=== PATIENT | male | born 1970 | race Two or more races ===

== ENCOUNTER 2017-01-25 13:13 | Emergency (ER) | payer SELFPAY ==
[2017-01-25] MEDS ORDERED: IBUPROFEN 800 MG TABLET PO ONE (13:27)
--- NOTE | 2017-01-25 13:27 | ER Document Report ---
ED Medical Screen (RME) - General Stated Complaint: LEG INJURY Mode of Arrival: Wheelchair Information source: Patient Notes: c/o pain in left ankle that started last week when he was playing basketball when he jumped up. He is able to bear weight on that ankle but pain worse with movement. Believes he has a "broken calcaneous tendon." Endorses swelling, bruising and numbness to area. has tried tylenol which did not provide relief. I have greeted and performed a rapid initial assessment of this patient. A comprehensive ED assessment and evaluation of the patient, analysis of test results and completion of the medical decision making process will be conducted by additional ED providers. TRAVEL OUTSIDE OF THE [place] IN LAST 30 DAYS: No - Related Data Allergies/Adverse Reactions: No Known Allergies Allergy (Verified 01/25/17 13:24) Past Medical History - Past Medical History Cardiac Medical History: Reports: Hx Hypertension - Immunizations Hx Diphtheria, Pertussis, Tetanus Vaccination: No Physical Exam - Vital signs Vitals: Temp Pulse Resp BP Pulse Ox 97.8 F 93 16 141/84 H 98 01/25/17 13:23 01/25/17 13:23 01/25/17 13:23 01/25/17 13:23 01/25/17 13:23 - Notes Notes: Left lower extremity - tender to palpation along achilles tendon without obvious deformity, no bruising or swelling noted Course - Vital Signs Vital signs: Temp Pulse Resp BP Pulse Ox 97.8 F 93 16 141/84 H 98 01/25/17 13:23 01/25/17 13:23 01/25/17 13:23 01/25/17 13:23 01/25/17 13:23
--- NOTE | 2017-01-25 14:50 | ER Document Report ---
ED Extremity Problem, Lower - General Chief Complaint: Leg Pain Stated Complaint: LEG INJURY Mode of Arrival: Wheelchair Information source: Patient Notes: 46-year-old male presents to the emergency department complaining of pain to left posterior ankle/heel area. Patient reports was playing basketball approximately 5 days ago when he was jumping and felt a pop to his posterior lower leg area. Reports has subsequently developed bruising, mild swelling, and slight weakness of foot. Denies numbness or tingling. TRAVEL OUTSIDE OF THE [place] IN LAST 30 DAYS: No - HPI Patient complains to provider of: Injury, Pain, Swelling Location: Foot, Leg Occurred: Last week Where: Sports Onset/Duration: Persistent Quality of pain: Achy Severity: Mild Pain Level: 2 Recent injury: Possibly Associated symptoms: Marshall a pop, Painful ambulation, Weak Exacerbated by: Movement, Walking Relieved by: Elevation, Ice, Rest - Related Data Allergies/Adverse Reactions: No Known Allergies Allergy (Verified 01/25/17 13:24) Past Medical History - General Information source: Patient - Social History Smoking Status: Never Smoker Chew tobacco use (# tins/day): No Frequency of alcohol use: None Drug Abuse: None Lives with: Family Family History: None, Reviewed & Not Pertinent Patient has suicidal ideation: No Patient has homicidal ideation: No - Past Medical History Cardiac Medical History: Reports: Hx Hypertension Endocrine Medical History: Reports: Hx Diabetes Mellitus Type 2 Renal/ Medical History: Denies: Hx Peritoneal Dialysis Surgical Hx: Negative - Immunizations Hx Diphtheria, Pertussis, Tetanus Vaccination: Yes Review of Systems - Review of Systems Constitutional: No symptoms reported EENT: No symptoms reported Cardiovascular: No symptoms reported Respiratory: No symptoms reported Gastrointestinal: No symptoms reported Genitourinary: No symptoms reported Male Genitourinary: No symptoms reported Musculoskeletal: See HPI Skin: No symptoms reported Hematologic/Lymphatic: No symptoms reported Neurological/Psychological: No symptoms reported -: Yes All other systems reviewed and negative Physical Exam - Vital signs Vitals: Temp Pulse Resp BP Pulse Ox 97.8 F 93 16 141/84 H 98 01/25/17 13:23 01/25/17 13:23 01/25/17 13:23 01/25/17 13:23 01/25/17 13:23 Interpretation: Normal - General General appearance: Appears well, Alert In distress: None - HEENT Head: Normocephalic, Atraumatic Eyes: Normal Pupils: PERRL - Respiratory Respiratory status: No respiratory distress Chest status: Nontender Breath sounds: Normal Chest palpation: Normal - Cardiovascular Rhythm: Regular Heart sounds: Normal auscultation Murmur: No Pulses: Normal: Radial Normal capillary refill: Yes - Abdominal Inspection: Normal Distension: No distension Bowel sounds: Normal Tenderness: Nontender Organomegaly: No organomegaly - Back Back: Normal, Nontender - Extremities General upper extremity: Normal inspection, Nontender, Normal color, Normal ROM , Normal strength, Normal temperature. No: Tender, Edema General lower extremity: Normal inspection, Nontender, Normal color, Normal ROM , Normal strength, Normal temperature, Normal weight bearing. No: Tender, Edema , Shruthi's sign Calf: Nontender Ankle: Tender - Mild tenderness with palpation to left posterior ankle with slight localized swelling and bruising. Positive Clark test and weakness with dorsal and plantar flexion. Neurovascular function intact., Ecchymosis, Edema, Limited ROM, Positive Clark's test. No: Deformity, Instability - Neurological Neuro grossly intact: Yes Cognition: Normal Orientation: AAOx4 [place] Coma Scale Eye Opening: Spontaneous [place] Coma Scale Verbal: Oriented [place] Coma Scale Motor: Obeys Commands Jatin Coma Scale Total: 15 Speech: Normal Motor strength normal: LUE, RUE, LLE, RLE Sensory: Normal - Psychological Associated symptoms: Normal affect, Normal mood - Skin Skin Temperature: Warm Skin Moisture: Dry Skin Color: Normal Course - Re-evaluation Re-evalutation: 01/25/17 14:53 Patient hemodynamically stable, in no distress. Patient presentation and physical exam findings suggestive of Achilles tendon injury/rupture. Neurovascular function intact. X-ray shows no osseous acute injury. Patient was placed in a posterior short-leg splint in plantar flexion and crutches were provided with instructions on use. Home care, follow-up with orthopedics, and ED return precautions were discussed with patient who verbalized understanding and agrees with plan. - Vital Signs Vital signs: Temp Pulse Resp BP Pulse Ox 97.6 F 85 16 135/91 H 99 01/25/17 15:20 01/25/17 15:20 01/25/17 15:20 01/25/17 15:20 01/25/17 15:20 - Diagnostic Test Radiology reviewed: Image reviewed, Reports reviewed Procedures - Immobilization Left Leg Time completed: 14:56 Pre-Proc Neuro Vasc Exam: Normal Immobilizer type: Crutches, Short Leg Posterior Performed by: RN, PCT Post-Proc Neuro Vasc Exam: Normal Alignment checked and good: Yes Discharge - Discharge Clinical Impression: Achilles rupture, left Qualifiers: Encounter type: initial encounter Qualified Code(s): S86.012A - Strain of left Achilles tendon, initial encounter Condition: Stable Disposition: HOME, SELF-CARE Instructions: Achilles Tendon Rupture ([facility]), Ice & Elevation ([facility]), Use of Crutches ([facility]), Splint Precautions ([facility]), Anti-Inflammatory Medication ([facility]) Additional Instructions: Follow-up with orthopedics tomorrow. Return to the Emergency Department for any worsening symptoms or concerns. Prescriptions: Naproxen [Naprosyn 375 Mg Tablet] 375 mg PO BIDP PRN #10 tablet PRN Reason: Forms: Elevated Blood Pressure, Return to Work Referrals: OCTAVIO MILLER MD [ACTIVE STAFF] - Follow up tomorrow
[2017-01-25 15:30] VITALS: BP 135/91
== END 2017-01-25 15:21 | disposition home or self-care (01) ==
LOC: ER 13:13
PROC: 2W3RX1Z Immobilization of Left Lower Leg using Splint (ICD-10-PCS; principal; 2017-01-25)
DX: S86.012A Strain of left Achilles tendon, initial encounter (principal); X50.0XXA Overexertion from strenuous movement or load, initial encounter; Y93.67 Activity, basketball; E11.9 Type 2 diabetes mellitus without complications; I10 Essential (primary) hypertension
CPT/HCPCS: 99283

== ENCOUNTER 2017-06-03 19:40 | Emergency (ER) | payer SELFPAY ==
[2017-06-03] MEDS ORDERED: NORMAL SALINE 1000 ML 1,000 ML IV ONE (20:05)
[2017-06-03] MEDS ORDERED: GLYBURIDE 2.5 MG TABLET PO ONE (20:05)
[2017-06-03] MEDS ORDERED: METFORMIN HCL 500 MG TABLET PO ONE (20:05)
--- NOTE | 2017-06-03 20:09 | ER Document Report ---
ED General - General Chief Complaint: High Blood Sugar Stated Complaint: POSSIBLE BLOOD SUGAR HIGH Time Seen by Provider: 06/03/17 19:57 Mode of Arrival: Ambulatory Information source: Patient Notes: 47-year-old diabetic male who is supposed be on glimepiride and metformin but has not been on medications for 6 months due to cost. Patient denies any symptoms at all except for increased urination TRAVEL OUTSIDE OF THE [place] IN LAST 30 DAYS: No - HPI Onset: Other - Duration Onset/Duration: Persistent Quality of pain: No pain Severity: Mild Pain Level: Denies Associated symptoms: Other - Urination Exacerbated by: Denies Relieved by: Denies Similar symptoms previously: No Recently seen / treated by doctor: No - Related Data Allergies/Adverse Reactions: No Known Allergies Allergy (Verified 01/25/17 13:24) Past Medical History - Social History Smoking Status: Never Smoker Cigarette use (# per day): No Chew tobacco use (# tins/day): No Smoking Education Provided: No Family History: None, Reviewed & Not Pertinent - Past Medical History Cardiac Medical History: Reports: Hx Hypertension Endocrine Medical History: Reports: Hx Diabetes Mellitus Type 2 Renal/ Medical History: Denies: Hx Peritoneal Dialysis - Immunizations Hx Diphtheria, Pertussis, Tetanus Vaccination: Yes Review of Systems - Review of Systems Notes: REVIEW OF SYSTEMS: CONSTITUTIONAL : Denies fever, chills, or sweats. Denies recent illness. EENT: Denies eye, ear, throat, or mouth pain or symptoms. Denies nasal or sinus congestion or discharge. Denies throat, tongue, or mouth swelling or difficulty swallowing. CARDIOVASCULAR: Denies chest pain. Denies palpitations or racing or irregular heart beat. Denies ankle edema. RESPIRATORY: Denies cough, cold, or chest congestion. Denies shortness of breath, difficulty breathing, or wheezing. GASTROINTESTINAL: Denies abdominal pain or distention. Denies nausea, vomiting , or diarrhea. Denies blood in vomitus, stools, or per rectum. Denies black, tarry stools. Denies constipation. GENITOURINARY: Admits to increased urinary frequency MUSCULOSKELETAL: Denies back or neck pain or stiffness. Denies joint pain or swelling. SKIN: Denies rash, lesions or sores. HEMATOLOGIC : Denies easy bruising or bleeding. LYMPHATIC: Denies swollen, enlarged glands. NEUROLOGICAL: Denies confusion or altered mental status. Denies passing out or loss of consciousness. Denies dizziness or lightheadedness. Denies headache. Denies weakness or paralysis or loss of use of either side. Denies problems with gait or speech. Denies sensory loss, numbness, or tingling. Denies seizures. PSYCHIATRIC: Denies anxiety or stress. Denies depression, suicidal ideation, or homicidal ideation. ALL OTHER SYSTEMS REVIEWED AND NEGATIVE. Dictation was performed using [employer] voice recognition software PHYSICAL EXAMINATION: GENERAL: Well-appearing, well-nourished and in no acute distress. HEAD: Atraumatic, normocephalic. EYES: Pupils equal round and reactive to light, extraocular movements intact, sclera anicteric, conjunctiva are normal. ENT: Nares patent, oropharynx clear without exudates. Moist mucous membranes. NECK: Normal range of motion, supple without lymphadenopathy LUNGS: Breath sounds clear to auscultation bilaterally and equal. No wheezes rales or rhonchi. HEART: Regular rate and rhythm without murmurs ABDOMEN: Soft, nontender, nondistended abdomen. No guarding, no rebound. No masses appreciated. Musculoskeletal: Normal range of motion, no pitting or edema. No cyanosis. NEUROLOGICAL: Cranial nerves grossly intact. Normal speech, normal gait. Normal sensory, motor exams PSYCH: Normal mood, normal affect. SKIN: Warm, Dry, normal turgor, no rashes or lesions noted. Physical Exam - Vital signs Vitals: Temp Pulse Resp BP Pulse Ox 98.0 F 95 20 136/89 H 97 06/03/17 19:46 06/03/17 19:46 06/03/17 19:46 06/03/17 19:46 06/03/17 19:46 Course - Re-evaluation Re-evalutation: 06/03/17 20:08 Patient's blood sugar at home was 480 and then recheck was 400, patient denies any symptoms except for increased urinary frequency, I will write refills for his medications otherwise patient looks well will be given medications here IV fluids and discharged home 06/03/17 21:23 Patient is noted to have a hemoglobin of 12.4, it is noted that he actually took his metformin and glyburide before arrival, his blood sugar when rechecked after a bag of fluids is now down to 184, he actually feels weaker now since his blood sugars probably been in the 400s for the past few months, I did see the patient. Otherwise I have asked his to cut back metformin to only 500 mg twice daily instead of 1000 mg as the patient appears to be quite sensitive to the change in his blood sugar Very strict return precautions have been provided After performing a Medical Screening Examination, I estimate there is LOW risk for ACUTE CORONARY SYNDROME, RESPIRATORY FAILURE, SEPSIS OR MENINGITIS, thus I consider the discharge disposition reasonable. I have reevaluated this patient multiple times and no significant life threatening changes are noted. The patient and I have discussed the diagnosis and risks, and we agree with discharging home with close follow-up. We also discussed returning to the Emergency Department immediately if new or worsening symptoms occur. We have discussed the symptoms which are most concerning (e.g., changing or worsening pain, trouble swallowing or breathing, neck stiffness, fever) that necessitate immediate return. - Vital Signs Vital signs: Temp Pulse Resp BP Pulse Ox 98.0 F 95 20 136/89 H 97 06/03/17 19:46 06/03/17 19:46 06/03/17 19:46 06/03/17 19:46 06/03/17 19:46 - Laboratory Result Diagrams: 06/03/17 20:30 06/03/17 20:30 Laboratory results interpreted by me: 06/03/17 06/03/17 06/03/17 20:30 20:30 20:30 Eosinophils % 6.5 H Glucose 234 H Hemoglobin A1c % 12.4 H Alkaline Phosphatase 187 H Discharge - Discharge Clinical Impression: Hyperglycemia, unControlled diabetes type 2, Urinary frequency Condition: Stable Disposition: HOME, SELF-CARE Instructions: Diabetes ([facility]) Additional Instructions: Please follow-up with your primary care physician regarding your blood sugar, return immediately if there are any other concerns
[2017-06-03 20:39] LABS: ABSOLUTE BASOPHILS # (AUTO) 0.1 10^3/uL (0.0-0.2); ABSOLUTE EOSINOPHILS # (AUTO) 0.6 10^3/uL (0.0-0.6); ABSOLUTE LYMPHOCYTES (AUTO) 2.7 10^3/uL (0.5-4.7); ABSOLUTE MONOCYTES (AUTO) 0.6 10^3/uL (0.1-1.4); ABSOLUTE NEUT (AUTO) 4.8 10^3/uL (1.7-8.2); BASOPHILS % (AUTO) 0.6 % (0-2); EOSINOPHILS % (AUTO) 6.5 % (0-6); HEMATOCRIT 44.9 % (37.9-51.0); HEMOGLOBIN 14.7 g/dL (13.5-17.0); HGB HCT DIFFERENCE -0.8; LYMPHOCYTES % (AUTO) 31.5 % (13-45); MEAN CORPUSCULAR HEMOGLOBIN 27.2 pg (27.0-33.4); MEAN CORPUSCULAR HGB CONC 32.8 g/dL (32.0-36.0); MEAN CORPUSCULAR VOLUME 83 fl (80-97); MONOCYTES % (AUTO) 6.8 % (3-13); RED BLOOD COUNT 5.41 10^6/uL (4.35-5.55); RED CELL DISTRIBUTION WIDTH 13.4 % (11.5-14.0); SEGMENTED NEUTROPHILS % (AUTO) 54.6 % (42-78); WHITE BLOOD COUNT 8.7 10^3/uL (4.0-10.5)
[2017-06-03 20:59] LABS: ALANINE AMINOTRANSFERASE 36 U/L (21-72); ALBUMIN 4.3 g/dL (3.5-5.0); ALKALINE PHOSPHATASE 187 U/L (38-126); ANION GAP 14 (5-19); ASPARTATE AMINO TRANSFERASE 19 U/L (17-59); BILIRUBIN,DIRECT 0.3 mg/dL (0.0-0.4); BILIRUBIN,TOTAL 0.4 mg/dL (0.2-1.3); BLOOD UREA NITROGEN 18 mg/dL (7-20); CALCIUM 9.4 mg/dL (8.4-10.2); CARBON DIOXIDE 23 mmol/L (22-30); CHLORIDE 101 mmol/L (98-107); CREATININE RESULT 0.84 mg/dL (0.52-1.25); GLUCOSE 234 mg/dL (75-110); POTASSIUM 4.4 mmol/L (3.6-5.0); SODIUM 137.8 mmol/L (137-145); TOTAL PROTEIN 7.9 g/dL (6.3-8.2)
[2017-06-03 21:36] VITALS: BP 124/74
== END 2017-06-03 21:32 | disposition home or self-care (01) ==
LOC: ER 19:40
DX: E11.65 Type 2 diabetes mellitus with hyperglycemia (principal); T38.3X6A Underdosing of insulin and oral hypoglycemic [antidiabetic] drugs, initial encounter; Z91.120 Patient's intentional underdosing of medication regimen due to financial hardship; Z91.14 Patient's other noncompliance with medication regimen; I10 Essential (primary) hypertension
CPT/HCPCS: 99285; 96360; 36415; 82962; 85025; 80053; 83036; J7030

== ENCOUNTER 2018-03-11 08:03 | Emergency (ER) | payer MEDICAID ==
--- NOTE | 2018-03-11 08:28 | ER Document Report ---
ED General - General Chief Complaint: Toothache Stated Complaint: TOOTH ACHE Time Seen by Provider: 03/11/18 08:26 Mode of Arrival: Ambulatory Information source: Patient TRAVEL OUTSIDE OF THE [place] IN LAST 30 DAYS: No - HPI Notes: 48-year-old male presents today with complaints of left lower dental pain 2 days, states worse with time, nothing makes better. Has not tried any over-the- counter medications. Pain is 10 out of 10. Denies smoking. Patient does have a primary care provider and dentist but has not made an appointment due to recently getting insurance. Eating and drinking without issues. Denies any facial swelling, trismus, drooling, throat swelling. swallowing without issues. Denies fevers, chills, chest pain,palpitations, shortness of breath, dyspnea , nausea, vomiting, diarrhea, abdominal pain, hematuria,blurred vision, double vision, loss of vision, speech changes, LH, dizziness, syncope, headaches, wheezing, ST, URI, neck pain, weakness, bowel or bladder dysfunction, saddle anesthesia, numbness or tingling in bilateral upper or lower extremities equally , muscle paralysis, weakness in bilateral upper or lower extremities equally or rash. Denies IV drug use. - Related Data Allergies/Adverse Reactions: No Known Allergies Allergy (Verified 03/11/18 08:04) Past Medical History - General Information source: Patient - Social History Smoking Status: Never Smoker Family History: None, Reviewed & Not Pertinent - Past Medical History Cardiac Medical History: Reports: Hx Hypertension Endocrine Medical History: Reports: Hx Diabetes Mellitus Type 2 Renal/ Medical History: Denies: Hx Peritoneal Dialysis - Immunizations Hx Diphtheria, Pertussis, Tetanus Vaccination: Yes Review of Systems - Review of Systems Constitutional: No symptoms reported EENT: See HPI Cardiovascular: No symptoms reported Respiratory: No symptoms reported Gastrointestinal: No symptoms reported Genitourinary: No symptoms reported Male Genitourinary: No symptoms reported Musculoskeletal: No symptoms reported Skin: No symptoms reported Hematologic/Lymphatic: No symptoms reported Neurological/Psychological: No symptoms reported Physical Exam - Vital signs Vitals: Temp Pulse Resp BP Pulse Ox 97.9 F 76 19 158/97 H 97 03/11/18 08:09 03/11/18 08:09 03/11/18 08:09 03/11/18 08:09 03/11/18 08:09 - Notes Notes: PHYSICAL EXAMINATION: GENERAL: Well-appearing, well-nourished and in no acute distress. HEAD: Atraumatic, normocephalic. EYES: Pupils equal round and reactive to light, extraocular movements intact, sclera anicteric, conjunctiva are normal. ENT: Nares patent, oropharynx clear without exudates. Moist mucous membranes. # 19,18 with noted inflammation and gingiva with mild dental decay. no avulsed or chipped tooth. No noted fluctuance, facial swelling. 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 Uvula midline. No surrounding lymphadenopathy. NECK: Normal range of motion, supple without lymphadenopathy LUNGS: Breath sounds clear to auscultation bilaterally and equal. No wheezes rales or rhonchi. HEART: Regular rate and rhythm without murmurs ABDOMEN: Soft, nontender, nondistended abdomen. No guarding, no rebound. No masses appreciated. Musculoskeletal: Normal range of motion, no pitting or edema. No cyanosis. NEUROLOGICAL: Cranial nerves grossly intact. Normal speech, normal gait. Normal sensory, motor exams PSYCH: Normal mood, normal affect. SKIN: Warm, Dry, normal turgor, no rashes or lesions noted. Course - Re-evaluation Re-evalutation: 03/11/18 08:39 Presentation is most consistent with likely an infected tooth. Airway is patent. Vitals within normal limits. Patient is able swallow without any difficulty. There is no significant facial swelling. No evidence of Mervat angina, apical abscess, or airway obstruction. Patient will be started on antibiotics. I've instructed to follow-up with dentistry as earliest ability for definitive management. At this time will discharge with return precautions and follow-up recommendations. Patient given oral antibiotics, advised to take as directed, yogurt daily to prevent loose stool. Follow-up with the dentist within 3 days. Take [id number] ibuprofen and Tylenol as needed. verbal discharge instructions given a the bedside and opportunity for questions given. Medication warnings reviewed. Patient is in agreement with this plan and has verbalized understanding of return precautions and the need for primary care follow-up in the next 24-72 hours. After performing a Medical Screening Examination, I estimate there is LOW risk for a DEEP SPACE INFECTION (e.g., MERVAT'S ANGINA OR RETROPHARYNGEAL ABSCESS), MENINGITIS, INTRACRANIAL HEMORRHAGE, or AIRWAY COMPROMISE, thus I consider the discharge disposition reasonable. Also, there is no evidence or peritonitis, sepsis, or toxicity. I have reevaluated this patient multiple times and no significant life threatening changes are noted. The patient and I have discussed the diagnosis and risks, and we agree with discharging home with close follow-up with the understanding that symptoms and presentations can change. We also discussed returning to the Emergency Department immediately if new or worsening symptoms occur. We have discussed the symptoms which are most concerning (e.g., changing or worsening pain, trouble swallowing or breathing, neck stiffness or fever) that necessitate immediate return. - Vital Signs Vital signs: Temp Pulse Resp BP Pulse Ox 97.9 F 76 19 158/97 H 97 03/11/18 08:09 03/11/18 08:09 03/11/18 08:09 03/11/18 08:09 03/11/18 08:09 Discharge - Discharge Clinical Impression: Dental caries Clinical Impression: (Ruled Out): Dental caries associated with enamel hypomineralization Condition: Good Disposition: HOME, SELF-CARE Instructions: [facility], Clindamycin ([facility]), Dentist, Toothache ( [facility]) Additional Instructions: Toothache Your pain is due to dental decay. The tooth must be repaired in order for you to feel better. You will, therefore, be referred to a dentist. Severe swelling or drainage around a tooth usually means a deep dental abscess. This also requires evaluation and treatment by the dentist, but antibiotics may be prescribed while awaiting dental treatment. You should be rechecked immediately if you develop major swelling of the face, increasing pain, a lump in the jaw or gums, headache, or fever. Return immediately for any new or worsening symptoms. You have been seen for dental pain. It is very important that you follow-up with a dentist for definitive care. Please return if you develop fever greater than 101, swelling in your face, vomiting, difficulty breathing or swallowing, or any other symptoms that are concerning to you. For pain you should take ibuprofen 600 mg every 6 hours as needed. Follow up with primary care provider and dentist, call tomorrow to make followup appointment. Prescriptions: Clindamycin HCl 300 mg PO Q6H #28 capsule Ibuprofen 600 mg PO QIDP PRN #20 tablet PRN Reason: Forms: Return to Work Referrals: DIANE BAUTISTA MD [ACTIVE STAFF] - Follow up in 1 week (prn)
[2018-03-11] MEDS ORDERED: KETOROLAC TROMETHAMINE 60 MG/2 ML SDV IM ONE (08:37)
[2018-03-11] MEDS ORDERED: CLINDAMYCIN HCL 150 MG CAPSULE PO ONE (08:38)
[2018-03-11 09:12] VITALS: BP 161/92
== END 2018-03-11 09:25 | disposition home or self-care (01) ==
LOC: ER 08:03
DX: K02.9 Dental caries, unspecified (principal); I10 Essential (primary) hypertension; E11.9 Type 2 diabetes mellitus without complications
CPT/HCPCS: 99282; 96372; J3490; J1885

== ENCOUNTER 2018-11-20 16:10 | Emergency (ER) | payer MEDICAID ==
[2018-11-20 18:43] VITALS: BP 134/88
--- NOTE | 2018-11-20 18:48 | ER Document Report ---
ED Blood Sugar Problem - General Chief Complaint: High Blood Sugar Stated Complaint: BLOOD SUGAR ISSUES Time Seen by Provider: 11/20/18 18:07 Mode of Arrival: Ambulatory Information source: Patient Notes: Patient is a patient states that he has been without his blood pressure 48-year-old male comes emergency room complaining of high blood sugar. Patient states he has been without his blood sugar medications for at least a month. He states he goes to the urgent care across the street first he missed an appointment second he was 20 minutes late he went there today to see if he could get in I told him he had no room. They told him he needed to come to ER. Patient is here at his stating that his made him come. He says he feels fine he has no complaints but he is here because she made him being here. He does state that his sugars have been running up around 300 and that he does know that he needs to get that corrected. He also states that his lancet machine is also broken so he has not been taking his blood sugars as he should. He also has a history of hypertension. Denies any other medical problems. He currently is taking metformin 1000 mg twice a day glyburide 2.5 mg daily and hydrochlorothiazide 12.5 mg daily and lisinopril 10 mg daily. Patient denies smoking TRAVEL OUTSIDE OF THE [place] IN LAST 30 DAYS: No - HPI Onset: Other - Month Onset/Duration: Better Quality of pain: No pain Severity: None Pain Level: 0 Blood sugar level at home: 250 D-stick result: 281 Insulin taken: No Glucose taken: No Associated symptoms: None Similar symptoms previously: Yes Recently seen / treated by doctor: No - Related Data Allergies/Adverse Reactions: No Known Allergies Allergy (Verified 11/20/18 16:11) Past Medical History - General Information source: Patient - Social History Smoking Status: Never Smoker Cigarette use (# per day): No Chew tobacco use (# tins/day): No Smoking Education Provided: No Frequency of alcohol use: None Drug Abuse: None Lives with: Family Family History: None, Reviewed & Not Pertinent Patient has suicidal ideation: No Patient has homicidal ideation: No - Past Medical History Cardiac Medical History: Reports: Hx Hypertension Endocrine Medical History: Reports: Hx Diabetes Mellitus Type 2 Renal/ Medical History: Denies: Hx Peritoneal Dialysis - Immunizations Hx Diphtheria, Pertussis, Tetanus Vaccination: Yes Review of Systems - Review of Systems Constitutional: No symptoms reported EENT: No symptoms reported Cardiovascular: No symptoms reported Respiratory: No symptoms reported Gastrointestinal: No symptoms reported Genitourinary: No symptoms reported Male Genitourinary: No symptoms reported Musculoskeletal: No symptoms reported Skin: No symptoms reported Hematologic/Lymphatic: No symptoms reported Neurological/Psychological: No symptoms reported -: Yes All other systems reviewed and negative Physical Exam - Vital signs Vitals: Temp Pulse Resp BP Pulse Ox 98.2 F 81 16 147/80 H 98 11/20/18 16:24 11/20/18 16:24 11/20/18 16:24 11/20/18 16:24 11/20/18 16:24 Interpretation: Hypertensive - Notes Notes: PHYSICAL EXAMINATION: GENERAL: Well-appearing, well-nourished and in no acute distress. HEAD: Atraumatic, normocephalic. EYES: Pupils equal round and reactive to light, extraocular movements intact, sclera anicteric, conjunctiva are normal. ENT: Nares patent, oropharynx clear without exudates. Moist mucous membranes. NECK: Normal range of motion, supple without lymphadenopathy LUNGS: Breath sounds clear to auscultation bilaterally and equal. No wheezes rales or rhonchi. HEART: Regular rate and rhythm without murmurs ABDOMEN: Soft, nontender, nondistended abdomen. No guarding, no rebound. No masses appreciated. Musculoskeletal: Normal range of motion, no pitting or edema. No cyanosis. NEUROLOGICAL: Normal speech, normal gait. Normal sensory, motor exams PSYCH: Normal mood, normal affect. SKIN: Warm, Dry, normal turgor, no rashes or lesions noted. Course - Re-evaluation Re-evalutation: 11/21/18 01:54 Patient makes it a point to tell me he has no symptoms whatsoever Reason is here is because his made him come. Patient further states that he has had the incident with the walk-in clinic as we have mentioned in the HPI. And they sent him here because they are afraid his sugars were out of control. Patient also stated to me that he has a problem with his last set machine that it does not extend far enough out so he is not been checking his sugars. I therefore wrote him a prescription for a new one. Patient was sat down and had a long talk with him about his diabetes about how if he does not take care of it now in the future it will get worse and he may even lead up to loss of digits or limbs or organs. I do believe I made somewhat of a day and his impression however it is hard to tell. I am writing patient for 1 month supply of his medications and for his lancet machine. - Vital Signs Vital signs: Temp Pulse Resp BP Pulse Ox 98.2 F 79 16 134/88 H 99 11/20/18 18:42 11/20/18 18:42 11/20/18 18:42 11/20/18 18:42 11/20/18 18:42 - Laboratory Laboratory results interpreted by me: 11/20/18 18:13 POC Glucose 231 H Discharge - Discharge Clinical Impression: Hyperglycemia, Medication refill Disposition: HOME, SELF-CARE Instructions: Hyperglycemia ([facility]) Additional Instructions: HYPERGLYCEMIA (HIGH BLOOD SUGAR): You have an abnormally high blood sugar. Not all high blood sugar requires long-term treatment. High blood sugar can be due to medications, , or the stress of illness. (These cases are "borderline diabetes.") If the doctor feels your high blood sugar might resolve with time, you may not require treatment now. It's very important that you follow through, to see if the blood sugar returns to normal levels. Uncontrolled high blood sugar leads to early heart disease, strokes, nerve damage, eye damage, and kidney damage. Call the physician if there is faintness, excess sleepiness, or very rapid breathing. DIABETES: You have an abnormally high blood sugar, suspicious for diabetes. Not all high blood sugar requires long-term treatment. High blood sugar can be due to medications, , or the stress of illness. (These cases are "borderline diabetes.") If the doctor feels your high blood sugar might get better with time, you may not require treatment now. It's very important that you follow through. Uncontrolled high blood sugar leads to early heart disease, strokes, nerve damage, eye damage, and kidney damage. All diabetics should follow a diet designed to control the blood sugar. Overweight diabetics should exercise regularly and lose weight. If this is not sufficient to control the blood sugar, pills or insulin shots are necessary. Younger people who develop diabetes almost always require insulin daily. Home testing of blood sugars or urine sugar is required. Diabetic teaching is available to help you figure insulin doses and monitor the blood sugar. Call the physician if there is faintness, excess sleepiness, or very rapid breathing. If hypoglycemia (LOW blood sugar) develops, symptoms are shakiness, weakness, sweating, and confusion. In this case, you should eat or drink something with sugar at once. ORAL HYPOGLYCEMIC MEDICATION: Oral hypoglycemics are medicines that lower blood sugar in diabetics. They are not effective for younger diabetics who require insulin. Some brands are tolbutamide, Orinase, glipizide, Glucotrol, glyburide, DiaBeta, Glynase, and Micronase. Some medications can increase or decrease the effect of Diabinese. Examples are Clofibrate (Atromid-S), phenylbutazone (Butazolidin), aspirin, sulfonamides, Coumadin, allopurinol (Zyloprim), probenecid (Benemid), acetazolamide (Diamox), beta blockers, steroids, estrogens, Indocin, INH, Levothyroxine, nicotinic acid, Diflucan, Dilantin, and thiazide diuretics. Be sure your doctor knows all the m edicines you take, and talk to your doctor before making any changes in your medicines. If you develop symptoms of shakiness, sweats, and lightheadedness, your blood sugar may have gone too low. Eat or drink a small amount of sweet food. If symptoms don't go away, call your doctor. FOLLOW-UP CARE: If you have been referred to a physician for follow-up care, call the physicians office for an appointment as you were instructed or within the next two days. If you experience worsening or a significant change in your symptoms, notify the physician immediately or return to the Emergency Department at any time for re-evaluation. As we discussed just because he did not feel bad by having a blood sugar of around 300 does not mean it is not hurting you. You need to take responsibility for your blood sugars. This means monitoring them and taking medications to correct them. You are 48 years old but if you do not pay attention to this now you will be pay for it when you are 50 and 60 and 72 years old by having lost digits limbs or organs. What you do now we will be what happens to you in the future. Should you have any concerns or problems return to ER for recheck. Also if you need to establish with someone I [facility] here that if you have insurance they take most if you do not have any insurance and have no job and they take nothing they can work in between on everything else. Prescriptions: Glyburide [Diabeta 2.5 mg Tablet] 2.5 mg PO DAILY #0.3 tablet Hydrochlorothiazide 12.5 mg PO DAILY #30 tablet Lancets [Lancets Thin] 1 each MC 5XD #120 each Lisinopril [Prinivil 10 mg Tablet] 10 mg PO DAILY #30 tablet Metformin HCl 1,000 mg PO BID #60 solution Forms: Elevated Blood Pressure [facility] [NO LOCAL MD] - Follow up as needed
== END 2018-11-20 19:00 | disposition home or self-care (01) ==
LOC: ER 16:10
DX: E11.65 Type 2 diabetes mellitus with hyperglycemia (principal); Z79.84 Long term (current) use of oral hypoglycemic drugs; I10 Essential (primary) hypertension
CPT/HCPCS: 82962; 99283

== ENCOUNTER 2019-11-15 10:26 | Emergency (ER) | payer MEDICAID ==
[2019-11-15 10:37] VITALS: BP 152/97
--- NOTE | 2019-11-15 11:58 | ER Document Report ---
ED Respiratory Problem - General Chief Complaint: Cold Symptoms Stated Complaint: COUGH Time Seen by Provider: 11/15/19 11:36 Mode of Arrival: Ambulatory Information source: Patient Notes: 49-year-old male presented to ED for complaint of cough cold congestion sore throat denies any fevers. States he does not smoke but he does work on a [employer]. He states he has been sick about a week. Patient is alert oriented respirations regular nonlabored speaking in full sentences. TRAVEL OUTSIDE OF THE [place] IN LAST 30 DAYS: No - HPI Patient complains to provider of: Asthma Onset: Last week Duration: Continuous Initiating Event: URI Quality of pain: Other - sore throat Severity: Mild Pain Level: 1 Context: Hx asthma Short of Breath: Mild Cough: Nonproductive Sputum amount: None Sputum color: Brown Associated symptoms: Congestion, Cough, PND, Sore Throat. denies: Fever Similar symptoms previously: Yes Recently seen / treated by doctor: No - Related Data Allergies/Adverse Reactions: No Known Allergies Allergy (Verified 11/15/19 10:29) Home Medications: albuterol. lisinopril. metformin. penicillin Past Medical History - General Information source: Patient - Social History Smoking Status: Never Smoker Chew tobacco use (# tins/day): No Frequency of alcohol use: None Drug Abuse: None Lives with: Family Family History: None, Reviewed & Not Pertinent Patient has suicidal ideation: No Patient has homicidal ideation: No - Past Medical History Cardiac Medical History: Reports: Hx Hypertension Pulmonary Medical History: Reports: None EENT Medical History: Reports: None Neurological Medical History: Reports: None Endocrine Medical History: Reports: Hx Diabetes Mellitus Type 2 Renal/ Medical History: Reports: None Malignancy Medical History: Reports None GI Medical History: Reports: None Musculoskeletal Medical History: Reports None Skin Medical History: Reports None Psychiatric Medical History: Reports: None Traumatic Medical History: Reports: None Infectious Medical History: Reports: None Surgical Hx: Negative Past Surgical History: Reports: None - Immunizations Immunizations up to date: Yes Hx Diphtheria, Pertussis, Tetanus Vaccination: Yes Review of Systems - Review of Systems Constitutional: No symptoms reported EENT: No symptoms reported Cardiovascular: No symptoms reported Respiratory: No symptoms reported Gastrointestinal: No symptoms reported Genitourinary: No symptoms reported Male Genitourinary: No symptoms reported Musculoskeletal: No symptoms reported Skin: No symptoms reported Hematologic/Lymphatic: No symptoms reported Neurological/Psychological: No symptoms reported -: Yes All other systems reviewed and negative Physical Exam - Vital signs Vitals: Temp Pulse Resp BP Pulse Ox 97.9 F 68 16 152/97 H 99 11/15/19 10:30 11/15/19 10:30 11/15/19 10:30 11/15/19 10:30 11/15/19 10:30 Interpretation: Normal - General General appearance: Appears well, Alert - HEENT Head: Normocephalic, Atraumatic Eyes: Normal Pupils: PERRL Ears: Normal External canal: Normal Tympanic membrane: Normal Sinus: Normal Nasal: Purulent discharge, Swelling Mouth/Lips: Normal Mucous membranes: Normal Pharynx: Post nasal drainage Neck: Normal - Respiratory Respiratory status: No respiratory distress Chest status: Nontender Breath sounds: Normal Chest palpation: Normal - Cardiovascular Rhythm: Regular Heart sounds: Normal auscultation Murmur: No - Abdominal Inspection: Normal Distension: No distension Bowel sounds: Normal Tenderness: Nontender Organomegaly: No organomegaly - Back Back: Normal, Nontender - Extremities General upper extremity: Normal inspection, Nontender, Normal color, Normal ROM, Normal temperature General lower extremity: Normal inspection, Nontender, Normal color, Normal ROM, Normal temperature, Normal weight bearing. No: Shruthi's sign - Neurological Neuro grossly intact: Yes Cognition: Normal Orientation: AAOx4 Jatin Coma Scale Eye Opening: Spontaneous Bradford Coma Scale Verbal: Oriented Jatin Coma Scale Motor: Obeys Commands Bradford Coma Scale Total: 15 Speech: Normal Motor strength normal: LUE, RUE, LLE, RLE Sensory: Normal - Psychological Associated symptoms: Normal affect, Normal mood - Skin Skin Temperature: Warm Skin Moisture: Dry Skin Color: Normal Course - Re-evaluation Re-evalutation: 11/15/19 12:47 After performing a Medical Screening Examination, I estimate there is LOW risk for ACUTE CORONARY SYNDROME, RESPIRATORY FAILURE, SEPSIS OR MENINGITIS, thus I consider the discharge disposition reasonable. I have reevaluated this patient multiple times and no significant life threatening changes are noted. The patient and I have discussed the diagnosis and risks, and we agree with discharging home with close follow-up. We also discussed returning to the Emergency Department immediately if new or worsening symptoms occur. We have discussed the symptoms which are most concerning (e.g., changing or worsening pain, trouble swallowing or breathing, neck stiffness, fever) that necessitate immediate return. - Vital Signs Vital signs: Temp Pulse Resp BP Pulse Ox 97.9 F 68 16 152/97 H 99 11/15/19 10:30 11/15/19 10:30 11/15/19 10:30 11/15/19 10:30 11/15/19 10:30 - Diagnostic Test Radiology reviewed: Image reviewed, Reports reviewed Discharge - Discharge Clinical Impression: URI (upper respiratory infection) Qualifiers: URI type: unspecified viral URI Qualified Code(s): J06.9 - Acute upper respiratory infection, unspecified Condition: Stable Disposition: HOME, SELF-CARE Additional Instructions: UPPER RESPIRATORY ILLNESS: You have a viral infection of the respiratory passages -- a "cold." This common infection causes nasal congestion, drainage, and often sore throat and cough. It is highly contagious. The disease usually lasts about 10 to 14 days. There is no "cure" for the viral infection -- it must run its course. If there is a complication, such as bacterial infection in the nose, sinuses, middle ear, or bronchial tubes, antibiotics may be required. The antibiotics won't affect the virus. Drink plenty of fluids. A humidifier may help. An expectorant medication or decongestant may make you more comfortable. Use acetaminophen or ibuprofen for fever or aches. See the doctor if fever persists over two days, if there is any significant worsening of your symptoms, or if you simply fail to improve as expected. COUGH-SUPPRESSANT & EXPECTORANT MEDICATION: You are to use a cough medication as needed for relief of symptoms. This medicine is a combination of an expectorant (to make the mucous thinner and more easily "coughed up") and a cough suppressant (to reduce the frequency of coughing). The cough-suppressant medicine is related to narcotics. You may experience mild nausea and sleepiness. Some patients who are very sensitive to narcotics may have stomach pain from this medicine. Taking the medicine with food reduces these side effects. Do not drive or work with machinery until you know how this medicine affects you. The expectorant should have no side effects. Iodine-containing expectorants (such as organidin) should not be taken by persons with active thyroid disease unless approved by your doctor. Call the doctor if you develop shortness of breath, hives, rash, itching, lightheadedness, or severe nausea and vomiting. USE OF ACETAMINOPHEN (Tylenol): Acetaminophen may be taken for pain relief or fever control. It's much safer than aspirin, offering a wider range of "safe" dosages. It is safe during . Some brand names are Tylenol, Panadol, Datril, Anacin 3, Tempra, and Liquiprin. Acetaminophen can be repeated every four hours. The following are maximum recommended dosages: >89 pounds or adults 650 mg to 900 mg Acetaminophen can be repeated every four hours. Maximum dose not to exceed 4000 mg a day. You cannot use normal [id number] cold medications as it will elevate your blood pressure. Please use Coricidin HBP which is [id number] you can ask the pharmacist for it. Asking for any cold medicine that you can use with high blood pressure. He can also use Flonase nasal spray. 1 spray each nostril twice a day. Another remedy is salt and soda solution gargles. 1 quart of water 1 tablespoon of salt 1 teaspoon of baking soda Mixed 3 ingredients together and boil for 1 minute Placed in a covered quart jar Use 1/2 ounce of cold solution to gargle 3 times a day FOLLOW-UP CARE: If you have been referred to a physician for follow-up care, call the physicians office for an appointment as you were instructed or within the next two days. If you experience worsening or a significant change in your symptoms, notify the physician immediately or return to the Emergency Department at any time for re-evaluation. Forms: Elevated Blood Pressure, Return to Work Referrals: [facility] [Provider Group] - Follow up as needed [facility] [Provider Group] - Follow up as needed [facility] [Provider Group] - Follow up as needed [facility] [Provider Group] - Follow up as needed
--- NOTE | 2019-11-15 12:32 | RADIOLOGY REPORT (SQ) ---
EXAM DESCRIPTION: CHEST 2 VIEWS COMPLETED DATE/TIME: 11/15/2019 12:20 pm REASON FOR STUDY: cogh congestion COMPARISON: 03/01/2014 EXAM PARAMETERS: NUMBER OF VIEWS: two views TECHNIQUE: Digital Frontal and Lateral radiographic views of the chest acquired. RADIATION DOSE: NA LIMITATIONS: none FINDINGS: LUNGS AND PLEURA: No opacities, masses or pneumothorax. No pleural effusion. MEDIASTINUM AND HILAR STRUCTURES: No masses or contour abnormalities. HEART AND VASCULAR STRUCTURES: Heart normal size. No evidence for failure. BONES: No acute findings. HARDWARE: None in the chest. OTHER: No other significant finding. IMPRESSION: NO ACUTE RADIOGRAPHIC FINDING IN THE CHEST. TECHNICAL DOCUMENTATION: JOB ID: [id number] [employer]- All Rights Reserved Reading location - IP/workstation name: [email or web address]
== END 2019-11-15 12:54 | disposition home or self-care (01) ==
LOC: ER 10:26
DX: J06.9 Acute upper respiratory infection, unspecified (principal); R05 Cough; R09.81 Nasal congestion; J02.9 Acute pharyngitis, unspecified; R09.82 Postnasal drip; J45.909 Unspecified asthma, uncomplicated; I10 Essential (primary) hypertension; E11.9 Type 2 diabetes mellitus without complications
CPT/HCPCS: 71046; 87070; 87880; 99283